=== PATIENT | female | born 1955 | race Caucasian/White ===

== ENCOUNTER 2025-04-04 16:00 | Observation (INO) | payer OTHER ==
[2025-04-04] MEDS: SODIUM CHLORIDE 0.9% 500 ML INFUS.BAG IV ONE (17:22)
[2025-04-04] MEDS ORDERED: METOCLOPRAMIDE HCL INJECTION 10 MG/2 ML VIAL ONE (17:33)
[2025-04-04 17:35] LABS: ABSOLUTE IMMATURE GRANULOCYTES 0.02 x10^3/uL (0.0-0.031); BASOPHILS # 0.04 x10^3/uL (0.01-0.08); EOSINOPHIL % 0.6 % (0.7-5.8); EOSINOPHILS # 0.05 x10^3/uL (0.04-0.36); MCHC 32.8 g/dl (32.2-35.5); MEAN CELL VOLUME 93.9 fl (79.4-94.8); MEAN PLT VOLUME 10.0 fl (9.4-12.3); MONOCYTE # 0.59 x10^3/uL (0.24-0.86); MONOCYTE % 7.2 % (4.7-12.5); RDW 12.3 % (12.4-16.6)
[2025-04-04] MEDS: METOCLOPRAMIDE HCL INJECTION 10 MG/2 ML VIAL IVPUSH ONE (17:35)
[2025-04-04 17:58] LABS: GLUCOSE,RANDOM 129 mg/dL (74-106)
[2025-04-04 17:59] LABS: TOT PROT 7.0 g/dl (6.4-8.2)
[2025-04-04 18:00] LABS: CO2 23 mmol/L (21-32)
[2025-04-04 18:01] LABS: ALK PHOS 57 U/L (40-150)
[2025-04-04 18:04] LABS: CREATININE 0.95 mg/dL (0.55-1.3); SGOT/AST 24 U/L (5-34); SGPT/ALT 11 U/L (0-55)
[2025-04-04 23:37] VITALS: BMI 24.3
[2025-04-05] MEDS: LACTATED RINGERS SOLUTION 1,000 ML IV SCH (00:11)
[2025-04-05] MEDS ORDERED: ONDANSETRON 4 MG/2 ML VIAL IVPUSH PRN (00:14)
[2025-04-05] MEDS: INSULIN ASPART SLIDING SCALE (NOVOLOG) 1 VIAL SQ SCH (05:04)
[2025-04-05 08:13] LABS: MCHC 32.5 g/dl (32.2-35.5); MEAN CELL VOLUME 95.0 fl (79.4-94.8); MEAN PLT VOLUME 10.5 fl (9.4-12.3); RDW 12.4 % (12.4-16.6)
[2025-04-05 08:51] LABS: GLUCOSE,RANDOM 101.0 mg/dL (74-106)
[2025-04-05 08:52] LABS: TOT PROT 6.1 g/dl (6.4-8.2)
[2025-04-05 08:53] LABS: CO2 24.0 mmol/L (21-32)
[2025-04-05 08:54] LABS: ALK PHOS 50.0 U/L (40-150)
[2025-04-05 08:57] LABS: CREATININE 0.94 mg/dL (0.55-1.3); SGOT/AST 20.0 U/L (5-34); SGPT/ALT 8.0 U/L (0-55)
[2025-04-05] MEDS: LOSARTAN POTASSIUM 25 MG TABLET PO SCH (09:39)
[2025-04-05] MEDS: MAGNESIUM SULF 50% (8.12 MEQ/2 ML-1 GM VIAL) IVPB ONE (10:34)
[2025-04-05] MEDS ORDERED: KETAMINE HCL 200 MG/20 ML VIAL ONE (14:56)
[2025-04-05] MEDS ORDERED: MIDAZOLAM HCL 2 MG/2 ML SINGLE DOSE VIAL ONE (14:56)
[2025-04-05 15:06] VITALS: TEMP 97.4
[2025-04-05 16:05] VITALS: BP 134/50; PULSE 61; RESP 15
[2025-04-05] MEDS ORDERED: ATORVASTATIN CA 10 MG TABLET (FP) PO SCH (22:00)
[2025-04-05] MEDS ORDERED: PAROXETINE HCL 20 MG, PAROXETINE HCL 10 MG PO SCH (22:00)
== END 2025-04-05 18:35 | disposition home or self-care (01) ==
LOC: JER 16:00 → JERBED 21:29 → J4S 23:25
PROVIDERS: ADMIT Internal Medicine; ATTEND Nurse Practitioner Family
PROC: 0DBH8ZZ Excision of Cecum, Via Natural or Artificial Opening Endoscopic (ICD-10-PCS; principal; 2025-04-04)
PROC: 3E013VG Introduction of Insulin into Subcutaneous Tissue, Percutaneous Approach (ICD-10-PCS; 2025-04-04)
PROC: 3E0337Z Introduction of Electrolytic and Water Balance Substance into Peripheral Vein, Percutaneous Approach (ICD-10-PCS; 2025-04-04)
PROC: 3E033GC Introduction of Other Therapeutic Substance into Peripheral Vein, Percutaneous Approach (ICD-10-PCS; 2025-04-04)
DX: R11.2 Nausea with vomiting, unspecified (principal); R42 Dizziness and giddiness; E11.9 Type 2 diabetes mellitus without complications; K64.8 Other hemorrhoids; I25.10 Atherosclerotic heart disease of native coronary artery without angina pectoris; Z95.1 Presence of aortocoronary bypass graft; I10 Essential (primary) hypertension; I24.89 Other forms of acute ischemic heart disease; Z95.5 Presence of coronary angioplasty implant and graft; F12.90 Cannabis use, unspecified, uncomplicated; R79.89 Other specified abnormal findings of blood chemistry; F17.200 Nicotine dependence, unspecified, uncomplicated
CPT/HCPCS: 36415; 71046-TC-FY; 80053; 82550; 82962; 83735; 84100; 84484; 85025; 88305-TC; 93005; 93010; 93306-TC; 96361; 96372; 96374; 96375; 99285-25; G0378